=== PATIENT | male | born 1935 | race Caucasian/White ===

== ENCOUNTER 2017-11-13 08:42 | Day surgery (SDC) | payer MEDICARE ==
[~2017-11-13 08:42] MED LIST: AMLO5TAB2 PO; CARV12.580 PO; RIVA20TA PO; SIMV40TA59 PO; SOTA80TA PO
[2017-11-13 09:17] LABS: INR 1.19 (0.85-1.15); PROTHROMBIN TIME 12.5 SEC (9.6-11.6)
[2017-11-13 10:20] VITALS: BP 155/85
[2017-11-13 10:35] VITALS: BP 155/82
[2017-11-13 10:50] VITALS: BP 151/88
[2017-11-13 11:05] VITALS: BP 157/88
[2017-11-13 11:20] VITALS: BP_SYST 149; BP_SYST 155; BP_DIAS 81; BP_DIAS 85
[2017-11-13 13:50] VITALS: BP 134/75
== END 2017-11-13 14:15 | disposition home or self-care (01) ==
LOC: DAH 08:42 → RAH 08:42 → EDSTATUS 10:00 → DAH 14:15
PROVIDERS: ATTEND Internal Medicine Hematology & Oncology
DX: J84.10 Pulmonary fibrosis, unspecified (principal); J90 Pleural effusion, not elsewhere classified; Z79.01 Long term (current) use of anticoagulants; F17.210 Nicotine dependence, cigarettes, uncomplicated; I11.0 Hypertensive heart disease with heart failure; I50.9 Heart failure, unspecified; E78.5 Hyperlipidemia, unspecified; J44.9 Chronic obstructive pulmonary disease, unspecified; I21.3 ST elevation (STEMI) myocardial infarction of unspecified site; Z98.890 Other specified postprocedural states; Z79.899 Other long term (current) drug therapy; Z88.8 Allergy status to other drugs, medicaments and biological substances
CPT/HCPCS: 32405; 36415; 71045; 77012; 85610; 85730; 88305

== ENCOUNTER 2018-11-23 08:30 | Inpatient (IN) | payer MEDICARE | END 2018-12-05 10:40 | disposition home or self-care (01) | LOC: EDH 08:30 → 4AH 11-29 09:36 → 2CH 12-04 12:03 → EDHIP 10:40 → 4CH 12:00 | PROC: B3101ZZ Fluoroscopy of Thoracic Aorta using Low Osmolar Contrast (ICD-10-PCS; principal; 2018-12-04 07:52) | PROC: B3111ZZ Fluoroscopy of Right Brachiocephalic-Subclavian Artery using Low Osmolar Contrast (ICD-10-PCS; 2018-12-04 07:52) | PROC: B31F1ZZ Fluoroscopy of Left Vertebral Artery using Low Osmolar Contrast (ICD-10-PCS; 2018-12-04 07:52) | PROC: B3121ZZ Fluoroscopy of Left Subclavian Artery using Low Osmolar Contrast (ICD-10-PCS; 2018-12-04 07:52) | PROC: B3181ZZ Fluoroscopy of Bilateral Internal Carotid Arteries using Low Osmolar Contrast (ICD-10-PCS; 2018-12-04 07:52) | PROC: B31C1ZZ Fluoroscopy of Bilateral External Carotid Arteries using Low Osmolar Contrast (ICD-10-PCS; 2018-12-04 07:52) | PROC: B3151ZZ Fluoroscopy of Bilateral Common Carotid Arteries using Low Osmolar Contrast (ICD-10-PCS; 2018-12-04 07:52) | PROC: 03CH0ZZ Extirpation of Matter from Right Common Carotid Artery, Open Approach (ICD-10-PCS; 2018-12-04 07:52) | DX: I65.23 Occlusion and stenosis of bilateral carotid arteries (principal); I42.0 Dilated cardiomyopathy; C49.12 Malignant neoplasm of connective and soft tissue of left upper limb, including shoulder; S00.93XA Contusion of unspecified part of head, initial encounter; R29.6 Repeated falls; I48.91 Unspecified atrial fibrillation; J44.9 Chronic obstructive pulmonary disease, unspecified; I10 Essential (primary) hypertension; E11.9 Type 2 diabetes mellitus without complications; I25.10 Atherosclerotic heart disease of native coronary artery without angina pectoris ==